=== PATIENT | male | born 1985 | race Caucasian/White ===

== ENCOUNTER 2016-12-27 09:05 | Emergency (ER) | payer MEDICAID ==
[~2016-12-27] VITALS: Ht 177.8 cm; Wt 90.0 kg
[~2016-12-27 09:05] MED LIST: MEDR4PAK3 PO
[2016-12-27 09:09] VITALS: BP 125/65; PULSE 70; RESP 18; TEMP 98.9; O2SAT 97
[2016-12-27] MEDS ORDERED: PROPARACAINE HCL 0.5% OPHT SOLN 15 ML BTL EACH EYE ONE (09:30)
[2016-12-27] MEDS ORDERED: POLY10O LEFT EYE (09:39)
--- NOTE | 2016-12-27 09:39 | PD ---
HPI Chief Complaint: Foreign Body Time Seen by Provider: 09:17 Travel History International Travel<30 days: No Contact w/Intl Traveler<30days: No Traveled to known affect area: No History of Present Illness HPI 31-year-old male complains of left eye foreign body sensation and irritation. Patient states that he was working in the lawn this morning and got something in the left eye. Patient tried to flush it out with water this morning prior coming in emergency room. PFSH Past Medical History Cancer: No Cardiovascular Problems: No High Cholesterol: No Congestive Heart Failure: No Cerebrovascular Accident: No Diminished Hearing: No Endocrine: No Gastrointestinal Disorders: No Genitourinary: No Headaches: Yes (FROM PINCHED NERVE) Immune Disorder: No Implanted Vascular Access Dvce: No Musculoskeletal: Yes Neurologic: Yes (PARENCHYMAL CONTUSION) Psychiatric: No Reproductive: No Respiratory: Yes (HX OF BRONCHITIS, PNEUMONIA ) Immunizations Current: No Seizures: No Thyroid Disease: No Tetanus Vaccination: Unknown Influenza Vaccination: No ?: Not Past Surgical History Cardiac Surgery: No Neurologic Surgery: No Oral Surgery: Yes Other Surgery: Yes (HERNIA REPAIR, Facial reconstruction) Social History Alcohol Use: Yes (OCC) Tobacco Use: Yes (1 PPD) Substance Use: No Allergies-Medications (Allergen,Severity, Reaction): Coded Allergies: Penicillin (Verified Allergy, Severe, ANAPHALAXIS, 12/27/16) Reported Meds & Prescriptions Reported Meds & Active Scripts Active Review of Systems General / Constitutional: No: Fever Eyes: Positive: Foreign Body Sensation, No: Visual changes HENT: No: Headaches Cardiovascular: No: Chest Pain or Discomfort Respiratory: No: Shortness of Breath Gastrointestinal: No: Abdominal Pain Genitourinary: No: Dysuria Musculoskeletal: No: Pain Skin: No Rash Neurologic: No: Weakness Psychiatric: No: Depression Endocrine: No: Polydipsia Hematologic/Lymphatic: No: Easy Bruising Physical Exam Narrative GENERAL: Well-nourished, well-developed patient. SKIN: Focused skin assessment warm/dry. HEAD: Normocephalic. EYES: Left conjunctiva mildly erythematous. Left eye stained with fluorescein stain shows minor uptake on the cornea. Small eyelash was visible on the conjunctiva and was removed with a Q-tip. Left eye was irrigated with saline solution. NECK: Supple, trachea midline. No JVD or lymphadenopathy. CARDIOVASCULAR: Regular rate and rhythm without murmurs, gallops, or rubs. RESPIRATORY: Breath sounds equal bilaterally. No accessory muscle use. GASTROINTESTINAL: Abdomen soft, non-tender, nondistended. MUSCULOSKELETAL: No cyanosis, or edema. BACK: Nontender without obvious deformity. No CVA tenderness. Data Data Last Documented VS Vital Signs Date Time Temp Pulse Resp B/P Pulse Ox O2 Delivery O2 Flow Rate FiO2 12/27/16 09:09 98.9 70 18 125/65 97 Room Air Orders Proparacaine 0.5% Opth Soln (Alcaine 0.5 (12/27/16 09:30) MDM Medical Decision Making Medical Screen Exam Complete: Yes Emergency Medical Condition: Yes Differential Diagnosis Differential diagnosis including foreign body, corneal abrasion. Narrative Course 31-year-old male with foreign body sensation left eye. Procedures Procedure Narrative Left eye stained with fluoresceins stain shows minor uptake on the cornea. A small eyelash was removed with a Q-tip on the left eye. Left eye irrigated with saline solution. No other foreign body noted. Diagnosis Primary Impression: Left corneal abrasion Qualified Code: S05.02XA - Abrasion of left cornea, initial encounter Additional Impression: Foreign body of left eye Qualified Code: T15.92XA - Foreign body of left eye, initial encounter Patient Instructions: General Instructions Additional Instructions: Polytrim ophthalmic solution as directed. Follow-up with personal physician or grinder hand if persistent problem. Return as needed. Med/Other Pt SpecificInfo: Prescription(s) given Scripts Polymyxin B-Trimethoprim Opth Drops (Polytrim Opth Drops)10,000-0.1 Unit/Ml-% Soln1 Drop LEFT EYE Q6HR #1 BOTTLE Ref 0 Prov:Augie Monroe MD 12/27/16 Disposition: 01 DISCHARGE HOME Condition: Stable Augie Monroe MD Dec 27, 2016 09:39
== END 2016-12-27 09:48 | disposition home or self-care (01) ==
LOC: PHED 09:05
DX: T15.02XA Foreign body in cornea, left eye, initial encounter (principal)
CPT/HCPCS: 65220

== ENCOUNTER 2017-01-31 09:49 | Emergency (ER) | payer MEDICAID ==
[~2017-01-31] VITALS: Ht 177.8 cm; Wt 85.5 kg
[~2017-01-31 09:49] MED LIST changes: -MEDR4PAK3 PO; +POLY10O LEFT EYE
[2017-01-31 09:56] VITALS: BP 164/76; PULSE 108; RESP 18; TEMP 98.1; O2SAT 98
[2017-01-31] MEDS ORDERED: TRAM50TA PO (10:40)
[2017-01-31] MEDS ORDERED: KETOROLAC TROMETHAMINE 60 MG/2 ML (IM) VIAL IM ONE (10:45)
--- NOTE | 2017-01-31 10:48 | PD ---
HPI Chief Complaint: Back/ Neck Pain or Injury Time Seen by Provider: 10:19 Travel History International Travel<30 days: No Contact w/Intl Traveler<30days: No Traveled to known affect area: No History of Present Illness HPI This patient complains of low back pain. Started yesterday afternoon. No injury. Sciatic radiation. No urinary symptoms or fever. Severity is moderate PFSH Past Medical History Cancer: No Cardiovascular Problems: No High Cholesterol: No Congestive Heart Failure: No Cerebrovascular Accident: No Diminished Hearing: No Endocrine: No Gastrointestinal Disorders: No Genitourinary: No Headaches: Yes (FROM PINCHED NERVE) Immune Disorder: No Implanted Vascular Access Dvce: No Musculoskeletal: Yes Neurologic: Yes (PARENCHYMAL CONTUSION) Psychiatric: No Reproductive: No Respiratory: Yes (HX OF BRONCHITIS, PNEUMONIA ) Immunizations Current: No Seizures: No Thyroid Disease: No Influenza Vaccination: No ?: Not Past Surgical History Abdominal Surgery: Yes (hernia repair) Cardiac Surgery: No Neurologic Surgery: No Oral Surgery: Yes Other Surgery: Yes (HERNIA REPAIR, Facial reconstruction) Social History Alcohol Use: Yes (OCC) Tobacco Use: Yes (1 PPD) Substance Use: No Allergies-Medications (Allergen,Severity, Reaction): Coded Allergies: penicillin G (Unverified Allergy, Severe, ANAPHALAXIS, 01/31/17) Reported Meds & Prescriptions Reported Meds & Active Scripts Active Tramadol (Tramadol HCl) 50 Mg Tab 50 Mg PO Q6H PRN Review of Systems General / Constitutional: No: Fever HENT: No: Headaches Cardiovascular: No: Chest Pain or Discomfort Physical Exam Narrative GASTROINTESTINAL: Abdomen soft, non-tender, nondistended. Positive bowel sounds. No hepato-splenomegaly, or palpable masses. No guarding. NEUROLOGICAL: Awake and alert. Pupils are equal round and reactive. Motor and sensory grossly within normal limits. Five out of 5 muscle strength in all muscle groups. Normal speech. SKIN: Focused skin assessment reveals no rash or ulcers. Skin is warm and dry. Palpation shows no induration or nodules. Back: No midline tenderness. No bruising or swelling. Data Data Last Documented VS Vital Signs Date Time Temp Pulse Resp B/P (MAP) Pulse Ox O2 Delivery O2 Flow Rate FiO2 01/31/17 09:56 98.1 108 18 164/76 (105) 98 Room Air Orders Orders Ketorolac Inj (Toradol Inj) (01/31/17 10:45) [facility] Medical Decision Making Medical Screen Exam Complete: Yes Emergency Medical Condition: Yes Medical Record Reviewed: Yes Differential Diagnosis Lumbar strain, sciatica, disc herniation Narrative Course I have reviewed the patient's electronic medical record. There are no objective findings here. Patient swears that he has never once in his life ever done IV drugs No fever or suspicion of discitis or epidural abscess He is neurologically intact I gave him Toradol injection and prescription for tramadol Recommend primary care follow-up Diagnosis Primary Impression: Low back pain Qualified Codes: M54.5 - Low back pain Additional Instructions: The patient was advised to follow up with their physician and return if they worsen. The patient was warned about potential sedation for the medications they will receive on prescription. Med/Other Pt SpecificInfo: Prescription(s) given Scripts Tramadol (Tramadol) 50 Mg Tab 50 MG PO Q6H Y for PAIN, #20 TAB 0 Refills Prov: Tylor Capellan MD 01/31/17 Disposition: 01 DISCHARGE HOME Condition: Stable Tylor Capellan MD Jan 31, 2017 10:48
== END 2017-01-31 11:02 | disposition home or self-care (01) ==
LOC: PHED 09:49
DX: M54.5 Low back pain (principal); F17.200 Nicotine dependence, unspecified, uncomplicated
CPT/HCPCS: 96372; 99284; J1885